=== PATIENT | male | born 1985 | race Caucasian/White ===

== ENCOUNTER 2025-07-05 10:38 | Inpatient (IN) | payer MEDICAID, OTHER ==
[~2025-07-05] VITALS: Ht 167.6 cm; Wt 61.2 kg
[2025-07-05 10:41] VITALS: O2SAT 96
[2025-07-05] MEDS: SODIUM CHLORIDE 0.9% (SEPSIS BOLUS) IV ONE (11:08)
[2025-07-05] MEDS: PIPERACILLIN/TAZO 3.375G/50ML 50 ML IV ONE (11:09)
[2025-07-05 11:26] LABS: BASOPHILS % 0.9 % (0.0-2.0); EOSINOPHILS % 0.0 % (0.0-5.0); HEMATOCRIT. 28.5 % (42.0-52.0); HEMOGLOBIN. 8.9 g/dL (14.0-18.0); LYMPHOCYTES % 7.5 % (20.0-50.0); MEAN PLATELET VOLUME 7.6 fl (7.4-10.4); MONOCYTES % 11.8 % (2.0-8.0); NEUTROPHILS % 79.8 % (40.0-76.0); PLATELET 170 x1000/uL (130-400); RED BLOOD CELL COUNT 3.55 mill/uL (4.7-6.1); RED CELL DISTRIBUTION WIDTH 21.1 % (11.6-14.6)
[2025-07-05 11:40] LABS: CREATININE 0.9 mg/dL (0.6-1.3); UREA NITROGEN BLOOD 11 mg/dL (9-23)
[2025-07-05 11:42] LABS: ASPARTATE AMINOTRANSFERASE 79 IU/L (<34); BILIRUBIN DIRECT 0.2 mg/dL (<=3.0); BILIRUBIN TOTAL 0.6 mg/dL (0.1-1.0); PROTEIN TOTAL 7.9 g/dL (6.0-8.3)
[2025-07-05 11:46] LABS: INR 1.0
[2025-07-05] MEDS ORDERED: LEVETIRACETAM 1,500MG in NACL 100ML PREMIX IV SCH (12:00)
[2025-07-05] MEDS: LORAZEPAM 2MG/ML UD SYRINGE ONE (12:21)
[2025-07-05] MEDS: VANCOMYCIN 1G PREMIX 200 ML IV ONE (12:21)
[2025-07-05] MEDS: LEVETIRACETAM 1500MG PREMIX 100 ML IV NR (12:27)
[2025-07-05] MEDS ORDERED: IPRATROPIUM/ALBUTEROL 0.5-3(2.5)MG/3ML NEB HHN PRN (13:15)
[2025-07-05] MEDS ORDERED: DEXTROSE 50% WATER 50ML SYRINGE IV PRN (13:15)
[2025-07-05] MEDS ORDERED: CLONIDINE 0.1MG TABLET PO PRN (13:15)
[2025-07-05] MEDS ORDERED: ONDANSETRON HCL 4MG/2ML INJ IV PRN (13:15)
[2025-07-05 13:43] LABS: PHOSPHORUS 1.6 mg/dL (2.5-4.9)
[2025-07-05] MEDS ORDERED: LORAZEPAM 2MG/ML UD SYRINGE IV PRN (14:00)
[2025-07-05] MEDS ORDERED: SODIUM CHLORIDE 0.9% 500 ML IV NR (14:00)
[2025-07-05 15:16] LABS: FOLIC ACID (FOLATE) SERUM > 20.00 ng/mL (>5.38); VITAMIN B12 SERUM 622 pg/mL (211-911)
[2025-07-05] MEDS: FOLIC ACID 1 MG, THIAMINE HCL 100 MG, MVI, ADULT NO.1 10 ML in DEXTROSE 5% WATER 1,000 ML IV ONE (15:26)
[2025-07-05] MEDS: MAGNESIUM 4 G PREMIX 100 ML IV NR (15:42)
[2025-07-05] MEDS: PANTOPRAZOLE SODIUM 40 MG/VIAL IV SCH (15:46)
[2025-07-05] MEDS: POTASSIUM PHOSPHATE 30 MMOL in DEXT 5% WATER 490 ML IV NR (18:41)
[2025-07-05] MEDS ORDERED: LEVETIRACETAM 500MG in NACL 100ML PREMIX IV SCH (21:00)
[2025-07-05] MEDS: LEVETIRACETAM 500MG PREMIX 100 ML IV SCH (21:51)
[2025-07-05 22:00] VITALS: BP 122/83; PULSE 79; RESP 16; TEMP 36.7; O2SAT 96
[2025-07-05] MEDS: PIPERACILLIN/TAZO 3.375G/50ML 50 ML IV SCH (22:25)
[2025-07-05] MEDS: VANCOMYCIN 750MG/150ML (BAXTER) IV SCH (22:37)
[2025-07-05 23:31] VITALS: BP 122/83; PULSE 89; RESP 14; TEMP 36.696
[2025-07-06] VITALS (12 sets, daily range): BP systolic 104–131; BP diastolic 56–88; PULSE 64–85; RESP 14–20; TEMP 36.8–37.4; O2SAT 95–99
[2025-07-06 02:27] LABS: CLARITY URINE CLEAR (CLEAR); COLOR URINE YELLOW (YELLOW); GLUCOSE URINE NEGATIVE (NEGATIVE); KETONES URINE NEGATIVE (NEGATIVE); LEUKOCYTE ESTERASE URINE NEGATIVE (NEGATIVE); NITRITE URINE NEGATIVE (NEGATIVE); OCCULT BLOOD URINE NEGATIVE (NEGATIVE); PH URINE 7.0 (4.5-8.0); PROTEIN URINE NEGATIVE (NEGATIVE); SPECIFIC GRAVITY URINE 1.004 (1.005-1.030); UROBILINOGEN URINE 0.2 E.U./dL (0.2-1.0)
[2025-07-06 03:16] LABS: *AMPHETAMINES SCREEN URINE NEGATIVE (NEGATIVE); *BARBITURATES SCREEN URINE NEGATIVE (NEGATIVE); *BENZODIAZEPINES SCREEN URINE NEGATIVE (NEGATIVE); *COCAINE SCREEN URINE NEGATIVE (NEGATIVE); CANNABINOID URINE SCREEN NEGATIVE (NEGATIVE); METHADONE URINE SCREEN NEGATIVE (NEGATIVE); OPIATES URINE SCREEN NEGATIVE (NEGATIVE); PHENCYCLIDINE URINE SCREEN NEGATIVE (NEGATIVE)
[2025-07-06 03:17] LABS: ECSTASY MDMA SCREEN URINE NEGATIVE (NEGATIVE)
[2025-07-06] MEDS: SODIUM CHLORIDE 0.9% 500 ML IV ONE (06:07)
[2025-07-06 08:20] LABS: HEMATOCRIT. 33.3 % (42.0-52.0); HEMOGLOBIN. 10.3 g/dL (14.0-18.0); MEAN PLATELET VOLUME 7.4 fl (7.4-10.4); PLATELET 171 x1000/uL (130-400); RED BLOOD CELL COUNT 4.17 mill/uL (4.7-6.1); RED CELL DISTRIBUTION WIDTH 21.0 % (11.6-14.6)
[2025-07-06 08:46] LABS: TRIGLYCERIDE 60 mg/dL (0-150); UREA NITROGEN BLOOD < 5 mg/dL (9-23)
[2025-07-06 08:47] LABS: ASPARTATE AMINOTRANSFERASE 69 IU/L (<34); BILIRUBIN DIRECT 0.3 mg/dL (<=3.0); BILIRUBIN TOTAL 1.0 mg/dL (0.1-1.0); LDL CHOLESTEROL 116 mg/dL (5-100); PROTEIN TOTAL 7.7 g/dL (6.0-8.3)
[2025-07-06 08:48] LABS: PHOSPHORUS 2.4 mg/dL (2.5-4.9)
[2025-07-06 08:50] LABS: T4 FREE 1.23 ng/dL (0.89-1.76)
[2025-07-06 08:57] LABS: CREATININE 0.5 mg/dL (0.6-1.3)
[2025-07-06] MEDS: MULTIVITAMINS,THER W-MINERALS TABLET PO SCH (09:00)
[2025-07-06] MEDS: FOLIC ACID 1MG TABLET PO SCH (09:00)
[2025-07-06] MEDS: THIAMINE HCL 100 MG/1 ML 2ML VIAL IM SCH (09:00)
[2025-07-06] MEDS: POTASSIUM CHLORIDE 20MEQ TABLET SR PO NR (12:46)
[2025-07-06] MEDS ORDERED: SODIUM PHOSPHATE 10 MMOL in DEXT 5% WATER 246.6667 ML IV SCH (18:00)
[2025-07-06 18:59] LABS: LYMPHOCYTES % MANUAL 26.0 % (20.0-50.0); MONOCYTES % MANUAL 15.0 % (2.0-8.0); NEUTROPHILS % MANUAL 59.0 % (45.0-75.0); PLATELET ESTIMATE NORMAL
[2025-07-06] MEDS: SODIUM PHOSPHATE 10 MMOL in DEXT 5% WATER 246.6667 ML IV SCH (20:00)
[2025-07-06] MEDS: CLOTRIMAZOLE 1% CREAM 15GM TOP ONE (21:34)
[2025-07-07] VITALS (12 sets, daily range): BP systolic 109–152; BP diastolic 54–98; PULSE 69–89; RESP 14–28; TEMP 36.6–37.4; O2SAT 96–99
[2025-07-07 04:12] LABS: CREATININE 0.7 mg/dL (0.6-1.3); UREA NITROGEN BLOOD < 5 mg/dL (9-23)
[2025-07-07] MEDS ORDERED: POTASSIUM CHLORIDE 40 MEQ in DEXT 5% WATER 230 ML IV ONE (09:00)
[2025-07-07] MEDS: KCL 20MEQ/100ML X 2 FOR TOTAL KCL 40MEQ/200ML IV SCH (11:54)
[2025-07-07] MEDS: NEOMY SULF/BACITRAC ZN/POLY OINT 28GM TOP SCH (14:03)
[2025-07-07] MEDS: FERROUS SULFATE 325MG TABLET PO SCH (14:04)
[2025-07-07] MEDS: LEVETIRACETAM 500MG TABLET PO SCH (20:38)
[2025-07-07] MEDS: CHLORDIAZEPOXIDE 25MG CAPSULE PO PRN (23:37)
[2025-07-08] VITALS (12 sets, daily range): BP systolic 122–146; BP diastolic 69–102; PULSE 80–96; RESP 13–21; TEMP 36.3–37.1; O2SAT 96–100
[2025-07-09] VITALS (7 sets, daily range): BP systolic 100–139; BP diastolic 59–96; PULSE 71–97; RESP 16–19; TEMP 35.6–37.6; O2SAT 95–100
[2025-07-09] MEDS: LORAZEPAM 2MG/ML UD SYRINGE IV PRN (02:00)
[2025-07-09] MEDS: THIAMINE HCL 100MG TABLET PO SCH (09:19)
[2025-07-09 10:28] LABS: HEMATOCRIT. 36.0 % (42.0-52.0); HEMOGLOBIN. 11.2 g/dL (14.0-18.0); MEAN PLATELET VOLUME 7.5 fl (7.4-10.4); PLATELET 218 x1000/uL (130-400); RED BLOOD CELL COUNT 4.40 mill/uL (4.7-6.1); RED CELL DISTRIBUTION WIDTH 21.0 % (11.6-14.6)
[2025-07-09 10:44] LABS: CREATININE 1.1 mg/dL (0.6-1.3); UREA NITROGEN BLOOD 7 mg/dL (9-23)
[2025-07-09 10:46] LABS: PHOSPHORUS 3.8 mg/dL (2.5-4.9)
[2025-07-09] MEDS: ACETAMINOPHEN 325MG TABLET PO PRN (12:46)
[2025-07-09] MEDS: POTASSIUM CHLORIDE 20MEQ TABLET SR PO NR (12:46)
[2025-07-09 19:36] LABS: EOSINOPHILS % MANUAL 2.0 % (0.0-5.0); LYMPHOCYTES % MANUAL 13.0 % (20.0-50.0); MONOCYTES % MANUAL 14.0 % (2.0-8.0); NEUTROPHILS % MANUAL 71.0 % (45.0-75.0); PLATELET ESTIMATE NORMAL
[2025-07-10] VITALS: BP 112/76; PULSE 87; RESP 18; TEMP 36.7; O2SAT 98
[2025-07-10 04:00] VITALS: BP 144/57; PULSE 75; RESP 19; TEMP 36.6; O2SAT 97
[2025-07-10 08:00] VITALS: BP 111/59; PULSE 73; RESP 18; TEMP 35.6; O2SAT 98
[2025-07-10 12:00] VITALS: BP 113/69; PULSE 76; RESP 18; TEMP 36; O2SAT 98
[2025-07-10] MEDS ORDERED: KEPP500 PO (12:43)
[2025-07-10 16:00] VITALS: BP 110/68; PULSE 81; RESP 17; TEMP 36.2; O2SAT 98
[2025-07-10 20:00] VITALS: BP 127/85; PULSE 83; RESP 18; TEMP 37.7; O2SAT 96
[2025-07-11] VITALS (8 sets, daily range): BP systolic 104–142; BP diastolic 64–88; PULSE 63–87; RESP 16–19; TEMP 36.4–38; O2SAT 96–98
[2025-07-11] MEDS: ACETAMINOPHEN 325MG TABLET PO PRN (11:19)
[2025-07-11] MEDS: RISPERIDONE 0.5MG TABLET PO SCH (21:57)
[2025-07-11] MEDS ORDERED: RISP05 PO (23:33)
[2025-07-12] VITALS: BP 124/74; PULSE 69; RESP 18; TEMP 36.2; O2SAT 98
[2025-07-12 04:00] VITALS: BP 128/74; PULSE 69; RESP 18; TEMP 36.2; O2SAT 98
== END 2025-07-12 10:42 | disposition left against medical advice (07) | DRG 53 ==
LOC: ER 10:38 → EDBD 13:00 → 5EST 13:00 → EDBEDREQTM 13:06 → EDBEDREQ 13:06 → EDBEDREQSVC 13:06 → ENRESERV 17:49 → 6WST 07-09 02:03 → 4WST 07-10 22:50 → UNDODISIN 07-10 22:54
PROVIDERS: ADMIT Internal Medicine; ATTEND Internal Medicine
PROC: GZ56ZZZ Individual Psychotherapy, Supportive (ICD-10-PCS; principal; 2025-07-08)
DX: G40.909 Epilepsy, unspecified, not intractable, without status epilepticus (principal); M62.82 Rhabdomyolysis; E87.20 Acidosis, unspecified; R65.11 Systemic inflammatory response syndrome (SIRS) of non-infectious origin with acute organ dysfunction; E83.39 Other disorders of phosphorus metabolism; D64.9 Anemia, unspecified; G93.89 Other specified disorders of brain; F10.129 Alcohol abuse with intoxication, unspecified; S00.81XA Abrasion of other part of head, initial encounter; E87.1 Hypo-osmolality and hyponatremia; E83.42 Hypomagnesemia; Y90.0 Blood alcohol level of less than 20 mg/100 ml; R82.4 Acetonuria; X58.XXXA Exposure to other specified factors, initial encounter; Y93.89 Activity, other specified; Y92.89 Other specified places as the place of occurrence of the external cause; Y99.8 Other external cause status
CPT/HCPCS: 36415; 71045; 80048; 80061; 80076; 80202; 80305; 80320; 81003; 82550; 82607; 82746; 82962; 83036; 83540; 83550; 83605; 83735; 84100; 84145; 84439; 84443; 85025; 92610; 93005; 93970; 97116; 97162; 99291; A4606; J1953; J2060; J2470; J2543; J3373; J3411; J3475; J3480; J3490; J7030; J7060; J7070; G0480